=== PATIENT | female | born 1960 | race Hispanic/Latino ===

== ENCOUNTER 2017-11-30 13:33 | Outpatient (CLI) | payer BC | END 2017-11-30 13:34 | disposition home or self-care (01) | LOC: BICMAMMO 13:33 | PROVIDERS: ATTEND Student in an Organized Health Care Education/Training Program | DX: Z12.31 Encounter for screening mammogram for malignant neoplasm of breast (principal); Z13.820 Encounter for screening for osteoporosis; M81.0 Age-related osteoporosis without current pathological fracture; M85.89 Other specified disorders of bone density and structure, multiple sites; R92.1 Mammographic calcification found on diagnostic imaging of breast; Z80.3 Family history of malignant neoplasm of breast | CPT/HCPCS: 77063; 77067; 77080 ==

== ENCOUNTER 2021-11-27 10:10 | Outpatient (CLI) | payer BC | END 2021-11-27 10:11 | disposition home or self-care (01) | LOC: BICMAMMO 10:10 | PROVIDERS: ATTEND Advanced Practice Midwife | DX: M85.89 Other specified disorders of bone density and structure, multiple sites (principal) | CPT/HCPCS: 77080 ==

== ENCOUNTER 2024-05-14 10:03 | Observation (INO) | payer BC ==
[2024-05-14 10:47] LABS: #Basophils 0.03 10x3/uL (0.0-0.2); #Eosinophils Less than 0.03 10x3/uL (0.0-0.7); %Basophils 0.2 % (0.0-1.0); %Lymphocytes 9.7 % (21.0-51.0); %Monocytes 4.1 % (0.0-10.0); %Neutrophils 85.5 % (42.0-75.0); Hematocrit 45.6 % (36.0-47.0); Hemoglobin 14.8 g/dL (12.0-16.0); Mean Corpuscular HGB CONC 32.5 g/dL (32.0-36.0); Mean Corpuscular Hemoglobin 27.8 pg (27.0-31.0); Mean Corpuscular Volume 85.6 fL (78.0-98.0); Mean Platelet Volume 9.4 fL (7.4-10.4); Platelet Count 326 10x3/uL (130-400); RBC Distribution Width 14.6 % (11.5-14.5); Red Blood Cell (RBC) Count 5.33 mill/uL (4.20-5.40)
[2024-05-14 10:48] LABS: Actual Bicarbonate (HCO3v) 19.4 mEq/L (22-28); Analyzer IN Cardio ER; Base Excess -4.6 mEq/L (-2.0 to +3.0); Chloride (VBG) 106 mmol/L (98-106); Hematocrit-VBG 46 % (36.0-47.0); Hemoglobin (Hb) 15.7 g/dL (11.7-16.0); Potassium (VBG) 3.86 mmol/L (3.70-5.30); Sodium 142 mmol/L (133-146); pH (venous) 7.384 (7.32-7.43)
[2024-05-14 11:07] LABS: ALT (SGPT) 16 U/L (8-55); AST (SGOT) 20 U/L (5-34); Alcohol Less than 10.0 mg/dL (Less than 10); Alkaline Phosphatase 138 U/L (40-110); Anion Gap 17 mmol/L (10-20); BUN (Urea Nitrogen) 14 mg/dL (9.8-20.1); Bilirubin, Total 0.7 mg/dL (0.2-1.2); CK (CPK) 417 U/L (29-168); Calc. Creatinine Clearance 0 mL/min (70-130); Calcium 9.5 mg/dL (7.8-10.44); Carbon Dioxide 16 mmol/L (23-31); Chloride 111 mmol/L (98-107); Estimated GFR 88; Globulin 3.6 g/dL (2.4-3.5); Glucose 107 mg/dL (80-115); Potassium 3.7 mmol/L (3.5-5.1); Protein, Total 7.6 g/dL (5.8-8.1); Salicylate Less than 8.0 mg/dL (Less than 8.0); Sodium 140 mmol/L (136-145)
[2024-05-14 11:26] LABS: Free T4 (Free Thyroxine) 1.44 ng/dL (0.70-1.48); Thyroid Stimulating Hormone 1.5943 uIU/mL (0.35-4.94)
[2024-05-14 13:14] LABS: Troponin I Less than 0.010 ng/mL (< 0.028)
[2024-05-14 13:44] LABS: Amphetamine Not Detected (NotDetected); Barbiturates Screen Not Detected (NotDetected); Benzodiazepine Screen Not Detected (NotDetected); Cocaine Metabolite Screen Not Detected (NotDetected); Methadone Not Detected (NotDetected); Methamphetamine Not Detected (NotDetected); Opiate Screen Not Detected (NotDetected); Oxycodone Screen Not Detected (NotDetected); Phencyclidine (PCP) Not Detected (NotDetected); THC/Cannabinoid Screen Not Detected (NotDetected); Tricyclic Screen Not Detected (NotDetected)
[2024-05-14 13:54] LABS: Lipase 15 U/L (8-78)
[2024-05-14 13:55] LABS: Acetaminophen Less than 10 mcg/mL (Less than 10); Alcohol Less than 10.0 mg/dL (Less than 10); Salicylate Less than 8.0 mg/dL (Less than 8.0)
[2024-05-14 14:11] LABS: Bacteria/HPF None Seen HPF (None Seen); Bilirubin Negative (Negative); Blood, Urine 1+ (Negative); CAUTI Indications for Culture Alt mental st,lethar; Clarity Clear (Clear); Glucose, Urine (Dipstick) Normal (Negative); Ketone, Urine 20 mg/dL (Negative); Leukocyte Negative Leu/uL (Negative); Nitrite Negative (Negative); Protein, Urine (Dipstick) Negative (Neg-Trace); Specific Gravity, Urine 1.017 (1.002-1.036); Squamous Epithelial 0-3 HPF (0-3); Urobilinogen Normal mg/dL (Less than 2); pH, Urine 6.5 (5.0-9.0)
[2024-05-14 14:13] LABS: Urine Culture Reflex No No
[2024-05-14] MEDS ORDERED: Ondansetron ODT 4 MG TAB PO PRN (14:13)
[2024-05-14] MEDS ORDERED: Ondansetron PF 4 MG/2 ML Vial IVP PRN (14:13)
[2024-05-14] MEDS ORDERED: Senokot S 8.6-50 MG TAB PO PRN (14:13)
[2024-05-14] MEDS ORDERED: Acetaminophen 325 MG TAB PO PRN (14:13)
[2024-05-14] MEDS ORDERED: Acetaminophen 650 MG Suppository PR PRN (14:13)
[2024-05-14 16:54] VITALS: BMI 29.5
[2024-05-14] MEDS: Lactated Ringer's 1,000 ML IV SCH (17:18)
[2024-05-14] MEDS: Famotidine/PF 20 mg/2ml Vial SLOW IVP SCH (20:50)
[2024-05-15 04:42] LABS: #Basophils 0.03 10x3/uL (0.0-0.2); %Basophils 0.4 % (0.0-1.0); %Eosinophils 0.6 % (0.0-10.0); %Lymphocytes 26.3 % (21.0-51.0); %Monocytes 5.9 % (0.0-10.0); %Neutrophils 66.4 % (42.0-75.0); Hematocrit 37.5 % (36.0-47.0); Hemoglobin 12.2 g/dL (12.0-16.0); Mean Corpuscular HGB CONC 32.5 g/dL (32.0-36.0); Mean Corpuscular Hemoglobin 27.2 pg (27.0-31.0); Mean Corpuscular Volume 83.5 fL (78.0-98.0); Mean Platelet Volume 9.7 fL (7.4-10.4); Platelet Count 323 10x3/uL (130-400); RBC Distribution Width 14.8 % (11.5-14.5); Red Blood Cell (RBC) Count 4.49 mill/uL (4.20-5.40)
[2024-05-15 05:10] LABS: ALT (SGPT) 13 U/L (8-55); AST (SGOT) 16 U/L (5-34); Albumin 3.2 g/dL (3.4-4.8); Alkaline Phosphatase 105 U/L (40-110); Anion Gap 15 mmol/L (10-20); BUN (Urea Nitrogen) 15 mg/dL (9.8-20.1); Bilirubin, Total 0.6 mg/dL (0.2-1.2); Calc. Creatinine Clearance 81 mL/min (70-130); Calcium 8.2 mg/dL (7.8-10.44); Carbon Dioxide 19 mmol/L (23-31); Chloride 112 mmol/L (98-107); Estimated GFR 91; Glucose 87 mg/dL (80-115); Potassium 3.3 mmol/L (3.5-5.1); Protein, Total 6.2 g/dL (5.8-8.1); Sodium 143 mmol/L (136-145)
[2024-05-15] MEDS ORDERED: Electrolyte Replacement Protocol 1 EACH FS PRN (08:03)
[2024-05-15] MEDS: Potassium Chloride 20 MEQ TAB PO SCH ×2 (08:15→16:38)
[2024-05-15] MEDS ORDERED: Electrolyte Replacement Protocol FS PRN (08:15)
[2024-05-15 08:25] LABS: Magnesium 1.9 mg/dL (1.6-2.6)
[2024-05-15] MEDS: Magnesium 2 GM/50 ML(in water) 2 GM in Premix 1 BAG IVPB SCH (09:49)
[2024-05-15 14:51] LABS: CK (CPK) 361 U/L (29-168); Potassium 3.5 mmol/L (3.5-5.1)
[2024-05-15 16:19] VITALS: BP 141/64; TEMP 98.3
== END 2024-05-15 17:32 | disposition home or self-care (01) ==
LOC: ERS 10:03 → ERHOLD 12:51 → 2SE 16:10
PROVIDERS: ADMIT Internal Medicine; ATTEND Internal Medicine
DX: R41.82 Altered mental status, unspecified (principal); F41.9 Anxiety disorder, unspecified; F32.A Depression, unspecified; I47.10 Supraventricular tachycardia, unspecified; E87.6 Hypokalemia; E83.42 Hypomagnesemia; R74.8 Abnormal levels of other serum enzymes; M25.512 Pain in left shoulder; M79.622 Pain in left upper arm; Z88.0 Allergy status to penicillin; Z88.5 Allergy status to narcotic agent; Z90.710 Acquired absence of both cervix and uterus; Z79.899 Other long term (current) drug therapy
CPT/HCPCS: 36415; 51701; 70450; 71045; 74176; 80053; 80143; 80179; 80306; 80307; 81001; 82140; 82550; 82805; 83605; 83690; 83735; 83880; 84439; 84443; 84484; 85025; 87040; 87086; 93005; 94760; 96374; 96375; 96376; G0378; J3475; J3490; J7120

== ENCOUNTER 2024-06-25 14:40 | Outpatient (CLI) | payer BC | END 2024-06-25 14:41 | disposition home or self-care (01) | LOC: BICULT 14:40 | PROVIDERS: ATTEND Family Medicine | DX: N39.41 Urge incontinence (principal); N39.0 Urinary tract infection, site not specified; Z87.898 Personal history of other specified conditions | CPT/HCPCS: 76770 ==